=== PATIENT | female | born 1935 | race Caucasian/White ===

== ENCOUNTER 2017-11-12 02:43 | Inpatient (IN) | payer MEDICARE ==
[2017-11-12] MEDS ORDERED: NS 0.9% 1000 ML* 1,000 ML IV ONE (03:07)
[2017-11-12] MEDS ORDERED: Ondansetron INJ* 2 MG/ML VIAL IV ONE (03:07)
[2017-11-12] MEDS ORDERED: fentaNYL* 50 MCG/ML 2 ML VIAL (100 MCG VIAL) IV SLOW PU ONE (03:09)
[2017-11-12 04:00] LABS: ABS Basophils 0.1 10^3/ul (0-0.2); ABS Eosinophils 0.1 10^3/ul (0-0.6); ABS Lymphocytes 2.1 10^3/ul (1.0-4.8); ABS Monocytes 1.5 10^3/ul (0-0.8); ABS Nucleated RBC 0 10^3/ul; Eosinophil % 1.1 % (0-6); Hematocrit 36 % (35-47); Hemoglobin 11.7 g/dl (12.0-16.0); Lymphocyte % 16.6 % (25-47); Mean Corpuscular HGB Conc 33 g/dl (31-36); Mean Corpuscular Hemoglobin 28 pg (27-31); Mean Corpuscular Volume 87 fL (80-97); Mean Platelet Volume 7 um3 (7.4-10.4); Nucleated Red Blood Cells % 0; Platelet Count 266 10^3/ul (150-450); Red Blood Count 4.13 10^6/ul (4.0-5.4); Red Cell Distribution Width 13 % (10.5-15); White Blood Count 12.9 10^3/ul (3.5-10.8)
[2017-11-12 04:09] LABS: INR 0.9 (0.77-1.02)
[2017-11-12 04:14] LABS: EGFR Non-African American 40.9 (>60)
[2017-11-12] MEDS ORDERED: Iodixanol* (CONTRAST) 320 MG/ML 100 ML SDV IV ONE (04:41)
[2017-11-12] MEDS ORDERED: metroNIDAZOLE IV 500 MG/100ML* 500 MG/100 ML BAG IVPB ONE (06:46)
[2017-11-12] MEDS ORDERED: Levofloxacin 500 MG IVPREMIX(* 500 MG/100 ML BAG IVPB ONE (06:46)
--- NOTE | 2017-11-12 06:51 | ED ---
Paras George Abhishek, scribed for Marta Maya MD on 11/12/17 at 0313 . Abdominal Pain/Female - HPI Summary HPI Summary: This patient is a 82 year old F presenting to [facility] accompanied by daughter with a chief complaint of LLQ abd pain since 179911/11/17. Pertinent PMHx includes renal calculi, DM and diverticulitis. The patient rates the pain 5/10 in severity. Symptoms aggravated by nothing. Symptoms alleviated by nothing. Patient reports nausea. Patient denies V/D, fever, and urinary symptoms. Pts last colonoscopy was 10 years ago. - History of Current Complaint Chief Complaint: EDAbdPain Stated Complaint: FLANK PAIN Time Seen by Provider: 11/12/17 02:58 Hx Obtained From: Patient Onset/Duration: Sudden Onset, Lasting Hours - since 179911/11/17 Severity Initially: Moderate Severity Currently: Moderate Pain Intensity: 5 Pain Scale Used: 0-10 Numeric Location: Discrete At: LUQ Aggravating Factor(s): Nothing Alleviating Factor(s): Nothing Associated Signs and Symptoms: Positive: Nausea. Negative: Fever, Urinary Symptoms, Vomiting, Diarrhea Allergies/Adverse Reactions: Allergies Allergy/AdvReac Type Severity Reaction Status Date / Time MS Penicillins [Penicillins] Allergy Severe Hives Verified 11/12/17 02:53 MS Morphine [Morphine] Allergy Mild Itching Verified 11/12/17 02:53 PMH/Surg Hx/FS Hx/Imm Hx Endocrine/Hematology History: Reports: Hx Anticoagulant Therapy - 81mg Aspirin, Hx Diabetes - type 2 Denies: Hx Thyroid Disease Cardiovascular History: Reports: Hx Congestive Heart Failure, Hx Hypertension Respiratory History: Denies: Hx Asthma, Hx Chronic Obstructive Pulmonary Disease (COPD) GI History: Denies: Hx Ulcer Neurological History: Reports: Hx Dementia - Surgical History Surgery Procedure, Year, and Place: L breast cyst removed; hysterrhectomy; appendectomy Infectious Disease History: No Infectious Disease History: Denies: Hx Hepatitis, Hx Human Immunodeficiency Virus (HIV), Traveled Outside the [place] in Last 30 Days - Family History Known Family History: Positive: Diabetes, Other - Cancer Negative: Cardiac Disease - Social History Occupation: Retired Alcohol Use: None Substance Use Type: Reports: None Hx Tobacco Use: Yes Smoking Status (MU): Former Smoker Review of Systems Negative: Fever Eyes: Negative ENT: Negative Cardiovascular: Negative Respiratory: Negative Positive: Abdominal Pain - LLQ, Nausea. Negative: Vomiting, Diarrhea Positive: no symptoms reported Musculoskeletal: Negative Skin: Negative Neurological: Negative Psychological: Normal All Other Systems Reviewed And Are Negative: Yes Physical Exam - Summary Physical Exam Summary: VITAL SIGNS: Reviewed. GENERAL: ~Patient is a morbidly obese (FEMALE) who is lying comfortable in the stretcher. Patient is not in any acute respiratory distress. HEAD AND FACE: No signs of trauma. No ecchymosis, hematomas or skull depressions. No sinus tenderness. EYES: PERRLA, EOMI x 2, No injected conjunctiva, no nystagmus. EARS: Hearing grossly intact. Ear canals and tympanic membranes are within normal limits. MOUTH: Oropharynx within normal limits. NECK: Supple, trachea is midline, no adenopathy, no JVD, no carotid bruit, no c- spine tenderness, neck with full ROM. CHEST: Symmetric, no tenderness at palpation LUNGS: Clear to auscultation bilaterally. No wheezing or crackles. CVS: Regular rate and rhythm, S1 and S2 present, no murmurs or gallops appreciated. ABDOMEN: LLQ tenderness EXTREMITIES: FROM in all major joints, no edema, no cyanosis or clubbing. NEURO: Alert and oriented x 3. No acute neurological deficits. Speech is normal and follows commands. SKIN: Dry and warm Triage Information Reviewed: Yes Vital Signs On Initial Exam: Initial Vitals Temp Pulse Resp BP Pulse Ox 99.0 F 84 16 146/79 95 11/12/17 02:45 11/12/17 02:45 11/12/17 02:45 11/12/17 02:45 11/12/17 02:45 Vital Signs Reviewed: Yes Diagnostics - Vital Signs Vital Signs Temp Pulse Resp BP Pulse Ox 11/12/17 02:45 99.0 F 84 16 146/79 95 - Laboratory Result Diagrams: 11/12/17 03:35 11/12/17 03:35 Lab Statement: Any lab studies that have been ordered have been reviewed, and results considered in the medical decision making process. Abdominal Pain Fem Course/Dx - Course Course Of Treatment: The pt is a 82 F who is presenting to the [facility] with a chief complaint of LLQ abd pain. The pt has hx of renal calculi and diverticulitis. Pt reports nausea, however, the pt denies vomitting. The pt recieved a CT A/P results. We discussed pt care with Dr. Hubbard and she accepts pt care. The dx will be sigmoid diverticulitis. - Diagnoses Provider Diagnoses: Sigmoid diverticulitis - Provider Notifications Discussed Care Of Patient With: Queenie Hubbard Time Discussed With Above Provider: 06:46 Instructed by Provider To: Admit As Observation Discharge - Discharge Plan Condition: Stable Disposition: ADMITTED TO [facility] Referrals: Ramon Brody MD [Primary Care Provider] - The documentation as recorded by the Paras geronimo Abhishek accurately reflects the service I personally performed and the decisions made by Francesco dykes Abdul, MD.
--- NOTE | 2017-11-12 07:49 | RAD ---
CLINICAL HISTORY: Abdominal pain COMPARISON: December 09, 2014 TECHNIQUE: Multiple contiguous axial CT scans were obtained of the abdomen and pelvis after the administration of intravenous contrast. Coronal and sagittal multiplanar reformations are submitted for review. Oral contrast was administered. Delayed images were obtained through the abdomen and pelvis. FINDINGS: LUNG BASES: The lung bases are clear. LIVER: The liver is normal in shape, size, contour, and attenuation. BILE DUCTS: There is no intrahepatic or extrahepatic biliary dilatation. GALLBLADDER: The gallbladder is normal, without pericholecystic inflammatory change. PANCREAS: The pancreas is normal, without mass or ductal dilatation. SPLEEN: Normal in size and appearance. UPPER GI TRACT: Evaluation of the gastrointestinal tract is limited by incomplete gastric distention. The upper GI tract is unremarkable. SMALL BOWEL AND MESENTERY: The small bowel is normal in contour, course, and caliber. There is no obstruction or dilatation. COLON: There is diverticulosis of the descending and sigmoid colon. There is pericolonic inflammatory change of the descending and sigmoid junction. There is no loculated fluid collections just abscess. ADRENALS: There is mild nodularity of left adrenal gland which may reflect hyperplasia. This is similar to the previous examination. The stability from 2015 is consistent with a nonaggressive process.. KIDNEYS: There is mild renal cortical parenchymal thinning.. There is no hydronephrosis or nephrolithiasis. BLADDER: The bladder is smooth in contour. PELVIC ORGANS: The pelvic organs are not visualized. AORTA: There is calcific atherosclerotic disease of the abdominal aorta and its branches, without aneurysmal dilatation IVC: Unremarkable LYMPH NODES: There is no lymphadenopathy by size criteria. ABDOMINAL WALL: There is a small fat-containing umbilical hernia. BONES AND SOFT TISSUES: Degenerative changes are noted of the spine and hips OTHER: None IMPRESSION: DIVERTICULITIS, WITHOUT LOCULATED FLUID COLLECTION TO SUGGEST ABSCESS.
[2017-11-12] MEDS ORDERED: Dextrose 50% Syringe 50 ML* 25 GM/50 ML SYRINGE IV PUSH PRN (08:13)
--- NOTE | 2017-11-12 09:08 | RAD ---
HISTORY: Diverticulitis COMPARISONS: September 02, 2012 VIEWS: 2: frontal portable view of the chest at 8:45 AM FINDINGS: LINES AND TUBES: None. CARDIOMEDIASTINAL SILHOUETTE: The cardiomediastinal silhouette is normal for portable technique and phase of inspiration. PLEURA: The costophrenic angles are sharp. No pleural abnormalities are noted. LUNG PARENCHYMA: The lung volumes are low. The lungs are clear. ABDOMEN: The upper abdomen is clear. There is no subphrenic gas. BONES AND SOFT TISSUES: No bone or soft tissue abnormalities are noted. IMPRESSION: NO ACTIVE CARDIOPULMONARY DISEASE.
[2017-11-12] MEDS ORDERED: Ciprofloxacin 400MG IVPREMIX(* 400 MG/200 ML BAG IVPB SCH (10:00)
[2017-11-12] MEDS ORDERED: ceFAZolin 2 GM PREMIX (*) 2 GM/50 ML BAG IVPB SCH (10:30)
[2017-11-12] MEDS ORDERED: metroNIDAZOLE IV 500 MG/100ML* 500 MG/100 ML BAG IVPB SCH (11:00)
[2017-11-12] MEDS: Enoxaparin(*) 40 MG/0.4 ML SYR SUBCUT SCH (11:09)
[2017-11-12 11:32] LABS: Urine Appearance Clear; Urine Blood Negative (Negative); Urine Color Yellow; Urine Ketones Negative (Negative); Urine Protein Negative (Negative); Urine Specific Gravity 1.034 (1.010-1.030); Urine Urobilinogen Negative (Negative)
[2017-11-12] MEDS: Ondansetron INJ* 2 MG/ML VIAL IV PRN (12:47)
[2017-11-12] MEDS: NS 0.9% 1000 ML* 1,000 ML IV SCH (12:47)
[2017-11-12] MEDS: Insulin LISPRO* 1 UNITS UNIT SUBCUT SCH ×3 (12:47→20:53)
[2017-11-12] MEDS: HYDROmorphone INJ* 2 MG/ML CARPUJECT SYRINGE IV SLOW PU PRN ×2 (12:47→17:19)
[2017-11-12] MEDS: FLUoxetine CAP* 10 MG PO SCH (12:48)
[2017-11-12] MEDS: Aspirin EC Low Dose* 81 MG TAB.EC PO SCH (12:48)
[2017-11-12] MEDS ORDERED: PROCHLORPERAZINE INJ 5 MG/ML 2 ML VIAL IM PRN (14:58)
[2017-11-12] MEDS: Insulin NPH(*) 1 UNITS UNIT SUBCUT SCH (15:20)
--- NOTE | 2017-11-12 15:25 | HP ---
HISTORY AND PHYSICAL: ADDENDUM: The emergency department RN paged me to report a reaction to the levofloxacin that had just been hung on Ms. Landa. She developed an erythematous macular rash on the arm in which it was infusing, so the infusion was discontinued. Based on this reaction, I will also discontinue the ciprofloxacin and start cefazolin in combination with her metronidazole. She does have a history of hives to PENICILLINS; however, given the low cross reactivity, we will attempt a cephalosporin. If she has a reaction to this as well, we will plan to switch to carbapenem. [id number]/[facility] #: [id number] [facility] SYSTEM[facility]
--- NOTE | 2017-11-12 15:34 | HP ---
TWO ADDENDUMS NOW INCLUDED ON THIS REPORT CC: Dr. Brody * HISTORY AND PHYSICAL: DATE OF ADMISSION: 11/12/17 TIME OF ADMISSION: 8:00 a.m. PRIMARY CARE PROVIDER: Dr. Brody. CHIEF COMPLAINT: "I was sick." HISTORY OF PRESENT ILLNESS: This is an 82-year-old female with a history of type 2 diabetes and dementia presenting with two days of fatigue and abdominal pain that began last night. She is here with her stepdaughter who currently lives with her and helps provide the history. Ms. Landa looks to her to respond to most of my questions. Her stepdaughter, Chen, reports that Ms. Landa had been napping more frequently than usual over the past 2 days and then last night after they got home from a doctor's visit she had a half serving of chili and then went to bed early around 7:30, which is unusual for her. Then at 2 a.m., Ms. Landa woke up her stepdaughter saying that she did not feel well and complained of left lower quadrant abdominal pain. She also complained of nausea at that time, but had no vomiting. Her stepdaughter brought her to the emergency department at that time. Otherwise, she reports feeling well recently. Has had no fevers at home. PAST MEDICAL HISTORY: Macular degeneration, type 2 diabetes, hypertension, hypothyroidism, and dementia. PCP is Dr. Brody. HOME MEDICATIONS: This is per the emergency department medication reconciliation: 1. Glipizide 2.5 mg in the morning. 2. Glipizide 5 mg in the evening. 3. Fluoxetine 10 mg daily. 4. Donepezil 5 mg at bedtime. 5. Aspirin 81 mg daily. 6. Simvastatin 40 mg at bedtime. 7. Losartan 50 mg daily. 8. Lasix 20 mg daily. 9. Synthroid 25 mcg in the morning. 10. Humalog 70/30; 40 units in the morning and 30 units with dinner. ALLERGIES: MORPHINE - hives and PENICILLIN - hives. SOCIAL HISTORY: Her stepdaughter, Chen, recently moved in with her from [place], because her daughter Alaina needed more help caring for her. She does not smoke and drink and has never been a smoker. Her daughter Alaina is her next of kin, her phone number is [phone]. She lives on 1 level with the exception of 3 stairs to get into the house. REVIEW OF SYSTEMS: Positive as per HPI, as well as loose stools for 1 week. She denies any recent constipation, fevers, chills, cough, cold, weight gain or weight loss, shortness of breath or chest pain. CONTINUATION ADDENDUM: PHYSICAL EXAMINATION GENERAL: Alert, well-appearing female in no distress. She is oriented to person only. She thinks it is 1966 and that the president is Abad Stein. VITAL SIGNS: Temperature 99 degrees, heart rate 81, respiratory rate 16, pulse ox 97% on 2 L, blood pressure 114/53. HEENT: Pupils equal, round and reactive to light with no conjunctival injection. She has moist oral mucosa with no pharyngeal exudates or erythema. NECK: No JVP. No cervical adenopathy. LUNGS: Clear bilaterally. CHEST: Regular rate and rhythm. No murmurs. PMI is nondisplaced. ABDOMEN: Soft, nondistended, and tender to palpation in the left lower quadrant with voluntary guarding. Liver is nonpalpable. She has a large suprapubic pouch that is nontender and nonreducible. EXTREMITIES: No edema. No rashes. No ulcers. NEUROLOGIC: Strength is 5+ throughout. Sensation is intact. She has good attention, but poor short-term recall. ASSESSMENT AND PLAN: 1. We will continue her IV antibiotics with ciprofloxacin and metronidazole. She meets inpatient criteria as she is currently unable to tolerate p.o. medications. I will continue IV ciprofloxacin and metronidazole until she is able to take pills. I will continue gentle IV fluid resuscitation and pain control as needed. We will advance her diet as tolerated. 2. Type 2 diabetes. At home she takes 70/30, 40 units in the morning and 30 units with dinner while she is not taking p.o. I will have the NPH portion and start fingersticks with correction lispro. 3. Hypertension. I am holding her antihypertensive for now and can add back her Lasix and losartan as needed. 4. Dementia. Continue Aricept at bedtime. She is well cared for by her daughter- in-law. 5. Hypothyroidism. Continue home levothyroxine. 6. Disposition. Admit to observation until Ms. Landa is able to take p.o. medications. Check EKG for antiemetics. 7. DVT prophylaxis. Lovenox subcutaneous. LABORATORY DATA: White blood cell 12.9, hemoglobin 11.7, platelets 266,000. Sodium 137, potassium 4.1, chloride 103, bicarb 29. BUN 30; creatinine 1.25, her baseline is 1.1. Glucose 78, lipase 24, albumin 3.5, total protein 6.1, total bili 0.5. ALT 7, AST 12, alk phos 56. Preliminary CT abdomen and pelvis with contrast: Uncomplicated sigmoid diverticulitis, bilateral renal cortical thinning and possible left adrenal adenoma which can be followed up with MRI as needed. ASSESSMENT AND PLAN: This is an 82-year-old female with a history of type 2 diabetes, dementia and hypertension who presents with left lower quadrant abdominal pain for 1 day and is found to have sigmoid diverticulitis on a CT with contrast. Acute sigmoid diverticulitis. This is likely the cause of her left lower quadrant abdominal pain. She received a dose of Levaquin and metronidazole in the emergency department. ADDENDUM: The emergency department RN paged me to report a reaction to the levofloxacin that had just been hung on MsShahana Landa. She developed an erythematous macular rash on the arm in which it was infusing, so the infusion was discontinued. Based on this reaction, I will also discontinue the ciprofloxacin and start cefazolin in combination with her metronidazole. She does have a history of hives to PENICILLINS; however, given the low cross reactivity, we will attempt a cephalosporin. If she has a reaction to this as well, we will plan to switch to carbapenem. [id number]/[facility] #: [id number]/[facility] #: [id number]/[facility] #: [id number] [facility]
--- NOTE | 2017-11-12 15:43 | HP ---
HISTORY AND PHYSICAL: ADDENDUM: PHYSICAL EXAMINATION GENERAL: Alert, well-appearing female in no distress. She is oriented to person only. She thinks it is 1966 and that the president is Abad Stein. VITAL SIGNS: Temperature 99 degrees, heart rate 81, respiratory rate 16, pulse ox 97% on 2 L, blood pressure 114/53. HEENT: Pupils equal, round and reactive to light with no conjunctival injection. She has moist oral mucosa with no pharyngeal exudates or erythema. NECK: No JVP. No cervical adenopathy. LUNGS: Clear bilaterally. CHEST: Regular rate and rhythm. No murmurs. PMI is nondisplaced. ABDOMEN: Soft, nondistended, and tender to palpation in the left lower quadrant with voluntary guarding. Liver is nonpalpable. She has a large suprapubic pouch that is nontender and nonreducible. EXTREMITIES: No edema. No rashes. No ulcers. NEUROLOGIC: Strength is 5+ throughout. Sensation is intact. She has good attention, but poor short-term recall. ASSESSMENT AND PLAN: 1. We will continue her IV antibiotics with ciprofloxacin and metronidazole. She meets inpatient criteria as she is currently unable to tolerate p.o. medications. I will continue IV ciprofloxacin and metronidazole until she is able to take pills. I will continue gentle IV fluid resuscitation and pain control as needed. We will advance her diet as tolerated. 2. Type 2 diabetes. At home she takes 70/30, 40 units in the morning and 30 units with dinner while she is not taking p.o. I will have the NPH portion and start fingersticks with correction lispro. 3. Hypertension. I am holding her antihypertensive for now and can add back her Lasix and losartan as needed. 4. Dementia. Continue Aricept at bedtime. She is well cared for by her daughter- in-law. 5. Hypothyroidism. Continue home levothyroxine. 6. Disposition. Admit to observation until Ms. Landa is able to take p.o. medications. Check EKG for antiemetics. 7. DVT prophylaxis. Lovenox subcutaneous. [id number]/[facility] #: [id number] [facility]
[2017-11-12] MEDS ORDERED: PROCHLORPERAZINE INJ 5 MG/ML 2 ML VIAL IV PRN (17:27)
[2017-11-12] MEDS: Atorvastatin* 20 MG TAB PO SCH (20:53)
[2017-11-12] MEDS: Donepezil TAB* 5 MG PO SCH (20:53)
[2017-11-12] MEDS: NS IVPB SCH ×2 (20:54)
[2017-11-12] MEDS: CEFAZOLIN IVPB SCH ×2 (20:54)
[2017-11-12] MEDS: metroNIDAZOLE IV 500 MG/100ML* 500 MG/100 ML BAG IVPB SCH (23:07)
[2017-11-12] MEDS: Acetaminophen TAB* 325 MG PO PRN (23:53)
[2017-11-13] MEDS: NS IVPB SCH ×6 (05:03→20:22)
[2017-11-13] MEDS: CEFAZOLIN IVPB SCH ×6 (05:03→20:22)
[2017-11-13 06:22] LABS: EGFR Non-African American 34.8 (>60)
[2017-11-13 06:41] LABS: Hematocrit 33 % (35-47); Hemoglobin 10.5 g/dl (12.0-16.0); Mean Corpuscular HGB Conc 32 g/dl (31-36); Mean Corpuscular Hemoglobin 28 pg (27-31); Mean Corpuscular Volume 89 fL (80-97); Red Blood Count 3.73 10^6/ul (4.0-5.4); Red Cell Distribution Width 14 % (10.5-15); White Blood Count 13.9 10^3/ul (3.5-10.8)
[2017-11-13] MEDS: metroNIDAZOLE IV 500 MG/100ML* 500 MG/100 ML BAG IVPB SCH ×3 (06:41→22:27)
[2017-11-13 07:56] LABS: ABS Basophils 0 10^3/ul (0-0.2); ABS Eosinophils 0 10^3/ul (0-0.6); ABS Lymphocytes 1.6 10^3/ul (1.0-4.8); ABS Monocytes 1.1 10^3/ul (0-0.8); ABS Neutrophils 11.1 10^3/ul (1.5-7.7); ABS Nucleated RBC 0 10^3/ul; Eosinophil % 0.2 % (0-6); Lymphocyte % 11.8 % (25-47); Mean Platelet Volume 9 um3 (7.4-10.4); Nucleated Red Blood Cells % 0; Platelet Count 195 10^3/ul (150-450)
[2017-11-13] MEDS: FLUoxetine CAP* 10 MG PO SCH (09:00)
[2017-11-13] MEDS: Aspirin EC Low Dose* 81 MG TAB.EC PO SCH (09:00)
[2017-11-13] MEDS: Insulin LISPRO* 1 UNITS UNIT SUBCUT SCH ×4 (09:00→20:53)
[2017-11-13] MEDS: Levothyroxine TAB* 25 MCG TAB PO SCH (09:00)
[2017-11-13] MEDS: Insulin NPH(*) 1 UNITS UNIT SUBCUT SCH ×2 (09:01→15:19)
[2017-11-13] MEDS: Enoxaparin(*) 40 MG/0.4 ML SYR SUBCUT SCH (09:01)
[2017-11-13] MEDS: Enoxaparin(*) 30 MG/0.3 ML SYR SUBCUT SCH (15:19)
--- NOTE | 2017-11-13 15:20 | PN ---
Subjective Date of Service: 11/13/17 Interval History: Feels a little better today, her daughter and stepdaughter are at the bedside. She remembers that she came to the ED for abdominal pain, and believes she is getting better. SHe had nausea all day yesterday, so did not eat until this morning. She had some jello and broth for lunch and tolerated it well. SHe has been having diarrhea, but it has been mixed with urine so no sample has been obtained. Family History: Unchanged from Admission Social History: Unchanged from Admission Past Medical History: Unchanged from Admission Objective Active Medications: Acetaminophen (Tylenol Tab*) 650 mg PO Q4H PRN PRN Reason: FEVER/PAIN Last Admin: 11/12/17 23:53 Dose: 650 mg Aspirin (Aspirin Ec Low Dose*) 81 mg PO DAILY [facility] Last Admin: 11/13/17 09:00 Dose: 81 mg Atorvastatin Calcium (Lipitor*) 20 mg PO BEDTIME [facility] Last Admin: 11/12/17 20:53 Dose: 20 mg Dextrose (D50w Syringe 50 Ml*) 12.5 gm IV PUSH .FOR FS < 60 - SS PRN PRN Reason: FS < 60 Donepezil HCl (Aricept Tab*) 5 mg PO BEDTIME [facility] Last Admin: 11/12/17 20:53 Dose: 5 mg Enoxaparin Sodium (Lovenox(*)) 30 mg SUBCUT Q24H CHARLY Fluoxetine HCl (Prozac Cap*) 10 mg PO DAILY [facility] Last Admin: 11/13/17 09:00 Dose: 10 mg Hydromorphone HCl (Dilaudid Inj*) 0.5 mg IV SLOW PU Q4H PRN PRN Reason: PAIN Last Admin: 11/12/17 17:19 Dose: 0.5 mg Sodium Chloride (Ns 0.9% 1000 Ml*) 1,000 mls @ 100 mls/hr IV PER RATE [facility] Last Admin: 11/12/17 12:47 Dose: 100 mls/hr Metronidazole/Sodium Chloride (Flagyl 500 Mg Ivpb*) 500 mg in 100 mls @ 100 mls /hr IVPB Q8HR [facility] Last Admin: 11/13/17 13:56 Dose: 100 mls/hr Cefazolin Sodium 2 gm/ Sodium (Chloride) 100 mls @ 200 mls/hr IVPB Q8HR@0500, 1300,2100 [facility] Last Admin: 11/13/17 12:57 Dose: 200 mls/hr Sodium Chloride (Ns 0.9% 500 Ml*) 500 mls @ 999 mls/hr IV ONCE ONE Stop: 11/13/17 16:30 Last Admin: 11/13/17 14:50 Dose: 999 mls/hr Insulin Human Lispro (Humalog*) 0 units SUBCUT ACHS [facility] PRN Reason: Protocol Last Admin: 11/13/17 12:26 Dose: 3 unit Insulin Human NPH (Insulin Nph(*)) 10 units SUBCUT 0700,1500 [facility] Last Admin: 11/13/17 09:01 Dose: 10 unit Levothyroxine Sodium (Synthroid Tab*) 25 mcg PO 0800 [facility] Last Admin: 11/13/17 09:00 Dose: 25 mcg Ondansetron HCl (Zofran Inj*) 4 mg IV Q4H PRN PRN Reason: NAUSEA Last Admin: 11/12/17 12:47 Dose: 4 mg Prochlorperazine Edisylate (Compazine Inj*) 5 mg IV Q6H PRN PRN Reason: NAUSEA Vital Signs - 8 hr 11/13/17 11/13/17 11/13/17 07:55 11:25 14:12 Temperature 99.6 F 98.2 F Pulse Rate 84 74 76 Respiratory 18 Rate Blood Pressure 106/74 110/51 82/31 (mmHg) O2 Sat by Pulse 97 100 99 Oximetry 11/13/17 14:29 Temperature Pulse Rate Respiratory Rate Blood Pressure 90/30 (mmHg) O2 Sat by Pulse Oximetry Oxygen Devices in Use Now: Nasal Cannula Appearance: alert, oriented to person only, no distress Eyes: No Scleral Icterus Ears/Nose/Mouth/Throat: NL Teeth, Lips, Gums Neck: NL Appearance and Movements; NL JVP Respiratory: Symmetrical Chest Expansion and Respiratory Effort, Clear to Auscultation Cardiovascular: NL Sounds; No Murmurs; No JVD, RRR Abdominal: NL Sounds; No Tenderness; No Distention, - - LLQ tender to deep palpation, no guarding or rebound. Lymphatic: No Cervical Adenopathy Extremities: No Edema Skin: No Rash or Ulcers Result Diagrams: 11/13/17 05:29 11/13/17 07:03 Assess/Plan/Problems-Billing Assessment: 82 yo female with history of diabetes and dementia who presented to the ED with LLQ abdominal pain and anorexia and was found to have acute diverticulitis on CT abd/pelvis - Patient Problems (1) Acute diverticulitis Current Visit: Yes Status: Acute Code(s): K57.92 - DVTRCLI OF INTEST, PART UNSP, W/O PERF OR ABSCESS W/O BLEED SNOMED Code(s): 841375061 Comment: unable to be managed as an outpatient due to inability to take PO advance diet today continue cefazolin/metronidazole increase IVF resuscitation for hypotension (2) Dementia Current Visit: Yes Status: Acute Code(s): F03.90 - UNSPECIFIED DEMENTIA WITHOUT BEHAVIORAL DISTURBANCE SNOMED Code(s): 17527462 Comment: at baseline per her family good ambulation, no concerns from them about safety at home; her stepdaughter Chen is living with her (3) Diabetes Current Visit: Yes Status: Acute Code(s): E11.9 - TYPE 2 DIABETES MELLITUS WITHOUT COMPLICATIONS SNOMED Code(s): 73154896 Comment: BG with adequate control on NPH 10U BID (will not add back 70/30 until she is taking more PO at mealtime) Status and Disposition: inpatient
[2017-11-13] MEDS ORDERED: NS 0.9% 500 ML* 500 ML IV ONE (16:00)
[2017-11-13] MEDS ORDERED: NS 0.9% 1000 ML* 1,000 ML IV ONE ×2 (16:00→17:15)
[2017-11-13] MEDS: NS 0.9% 1000 ML* 1,000 ML IV SCH ×2 (17:04→23:45)
[2017-11-13] MEDS: Atorvastatin* 20 MG TAB PO SCH (20:32)
[2017-11-13] MEDS: Donepezil TAB* 5 MG PO SCH (20:32)
[2017-11-14] MEDS: CEFAZOLIN IVPB SCH ×4 (05:41→12:56)
[2017-11-14] MEDS: NS IVPB SCH ×4 (05:41→12:56)
[2017-11-14] MEDS: metroNIDAZOLE IV 500 MG/100ML* 500 MG/100 ML BAG IVPB SCH ×3 (06:20→22:32)
[2017-11-14 06:48] LABS: ABS Basophils 0 10^3/ul (0-0.2); ABS Eosinophils 0.2 10^3/ul (0-0.6); ABS Monocytes 1.2 10^3/ul (0-0.8); ABS Neutrophils 8.2 10^3/ul (1.5-7.7); ABS Nucleated RBC 0 10^3/ul; Eosinophil % 1.6 % (0-6); Hematocrit 33 % (35-47); Hemoglobin 10.4 g/dl (12.0-16.0); Lymphocyte % 17.2 % (25-47); Mean Corpuscular HGB Conc 32 g/dl (31-36); Mean Corpuscular Hemoglobin 29 pg (27-31); Mean Corpuscular Volume 89 fL (80-97); Mean Platelet Volume 8 um3 (7.4-10.4); Nucleated Red Blood Cells % 0; Platelet Count 237 10^3/ul (150-450); Red Blood Count 3.66 10^6/ul (4.0-5.4); Red Cell Distribution Width 14 % (10.5-15); White Blood Count 11.6 10^3/ul (3.5-10.8)
[2017-11-14 07:14] LABS: EGFR Non-African American 42.5 (>60)
[2017-11-14] MEDS: Insulin LISPRO* 1 UNITS UNIT SUBCUT SCH ×4 (08:02→21:37)
[2017-11-14] MEDS: Levothyroxine TAB* 25 MCG TAB PO SCH (08:47)
[2017-11-14] MEDS: FLUoxetine CAP* 10 MG PO SCH (08:48)
[2017-11-14] MEDS: Aspirin EC Low Dose* 81 MG TAB.EC PO SCH (08:48)
[2017-11-14] MEDS: Insulin NPH(*) 1 UNITS UNIT SUBCUT SCH ×2 (08:48→15:27)
[2017-11-14] MEDS: Enoxaparin(*) 30 MG/0.3 ML SYR SUBCUT SCH (15:27)
--- NOTE | 2017-11-14 15:58 | PN ---
Subjective Date of Service: 11/14/17 Interval History: Patient seen and examined at bedside. Denies fever, chills, shortness of breath , chest discomfort. Pt states that her abdominal pain has improved, she reports intermittent nausea and vomiting. She has moved her bowels today. Family History: Unchanged from Admission Social History: Unchanged from Admission Past Medical History: Unchanged from Admission Objective Active Medications: Acetaminophen (Tylenol Tab*) 650 mg PO Q4H PRN Reason: FEVER/PAIN Aspirin (Aspirin Ec Low Dose*) 81 mg PO DAILY [facility] Atorvastatin Calcium (Lipitor*) 20 mg PO BEDTIME [facility] Dextrose (D50w Syringe 50 Ml*) 12.5 gm IV PUSH .FOR FS < 60 - SS PRN Reason: FS < 60 Donepezil HCl (Aricept Tab*) 5 mg PO BEDTIME [facility] Enoxaparin Sodium (Lovenox(*)) 30 mg SUBCUT Q24H [facility]LY Fluoxetine HCl (Prozac Cap*) 10 mg PO DAILY [facility] Hydromorphone HCl (Dilaudid Inj*) 0.5 mg IV SLOW PU Q4H PRN Reason: PAIN Sodium Chloride (Ns 0.9% 1000 Ml*) 1,000 mls @ 100 mls/hr IV PER RATE [facility] Metronidazole/Sodium Chloride (Flagyl 500 Mg Ivpb*) 500 mg in 100 mls @ 100 mls /hr IVPB Q8HR [facility] Cefazolin Sodium 2 gm/ Sodium (Chloride) 100 mls @ 200 mls/hr IVPB Q8HR@0500, 1300,2100 [facility] Insulin Human Lispro (Humalog*) 0 units SUBCUT ACHS CHARLY Insulin Human NPH (Insulin Nph(*)) 10 units SUBCUT 0700,1500 [facility] Levothyroxine Sodium (Synthroid Tab*) 25 mcg PO 0600 [facility] Ondansetron HCl (Zofran Inj*) 4 mg IV Q4H PRN Reason: NAUSEA Prochlorperazine Edisylate (Compazine Inj*) 5 mg IV Q6H PRN Reason: NAUSEA Vital Signs - 8 hr 11/14/17 11/14/17 11/14/17 08:00 09:00 11:32 Temperature 98.1 F Pulse Rate 77 75 Respiratory 18 16 20 Rate Blood Pressure 115/43 92/44 (mmHg) O2 Sat by Pulse 98 100 Oximetry Oxygen Devices in Use Now: Nasal Cannula - 1L Appearance: NAD, laying in bed Respiratory: Symmetrical Chest Expansion and Respiratory Effort, Clear to Auscultation Cardiovascular: NL Sounds; No Murmurs; No JVD, RRR Abdominal: NL Sounds; No Tenderness; No Distention Extremities: - - Mild bilateral LE edema Skin: No Rash or Ulcers Neurological: NL Muscle Strength and Tone, - - Alert and Oriented to person and place, states year is 1986 Lines/Tubes/Other Access: Clean, Dry and Intact Peripheral IV - site benign Nutrition: Taking PO's - full liquids Result Diagrams: 11/14/17 05:45 11/14/17 05:45 Microbiology and Other Data: Microbiology 11/14/17 09:57 Stool Gross Appearance - Final Stool C. difficile DNA Amplification - Final 027 Presumptive NEGATIVE Toxigenic C.diff NEGATIVE Assess/Plan/Problems-Billing Assessment: Ms. Landa is an 82 yo female with PMH significant for diabetes and dementia who presented to the ED with LLQ abdominal pain and anorexia and was found to have acute diverticulitis on CT abd/pelvis - Patient Problems (1) Acute diverticulitis Code(s): K57.92 - DVTRCLI OF INTEST, PART UNSP, W/O PERF OR ABSCESS W/O BLEED SNOMED Code(s): 735613977 Comment: - Unable to be managed as an outpatient due to inability to take PO - Continue full liquid diet - Change cefazolin to cefepime and continue metronidazole - Continue IVF resuscitation for hypotension (2) Hypothyroidism Code(s): E03.9 - HYPOTHYROIDISM, UNSPECIFIED SNOMED Code(s): 19660397 Comment: - Continue levothyroxine (3) Diabetes Current Visit: Yes Status: Acute Code(s): E11.9 - TYPE 2 DIABETES MELLITUS WITHOUT COMPLICATIONS SNOMED Code(s): 13811299 Comment: - Glucose 90-280's - Continue NPH 10U BID (will not add back 70/30 until she is taking more PO at mealtime) and Lispro SS (4) Dementia Code(s): F03.90 - UNSPECIFIED DEMENTIA WITHOUT BEHAVIORAL DISTURBANCE SNOMED Code(s): 40030445 Comment: - Appears to be at baseline - Good ambulation, no concerns from them about safety at home; her stepdaughter Chen is living with her (5) DVT prophylaxis Code(s): AMN8887 - SNOMED Code(s): 155517372 Comment: - Lovenox (6) Full code status Code(s): Z78.9 - OTHER SPECIFIED HEALTH STATUS SNOMED Code(s): 855435460 Status and Disposition: Inpatient. Discharge to home when medically stable, suspect 2-3 days.
[2017-11-14] MEDS ORDERED: Cefepime(*) 2 GM in NS 0.9% 50 ML* 50 ML IVPB SCH (21:00)
[2017-11-14] MEDS: Cefepime 2 GM in Dextrose(*) 2 GM/50 ML BAG IV SCH (21:16)
[2017-11-14] MEDS: Donepezil TAB* 5 MG PO SCH (21:20)
[2017-11-14] MEDS: Acetaminophen TAB* 325 MG PO PRN (21:20)
[2017-11-14] MEDS: Atorvastatin* 20 MG TAB PO SCH (21:20)
[2017-11-15] MEDS: NS 0.9% 1000 ML* 1,000 ML IV SCH ×2 (02:44→12:01)
[2017-11-15] MEDS: metroNIDAZOLE IV 500 MG/100ML* 500 MG/100 ML BAG IVPB SCH ×3 (05:13→21:39)
[2017-11-15] MEDS: Levothyroxine TAB* 25 MCG TAB PO SCH (05:14)
[2017-11-15 06:18] LABS: ABS Basophils 0 10^3/ul (0-0.2); ABS Eosinophils 0.4 10^3/ul (0-0.6); ABS Lymphocytes 2.1 10^3/ul (1.0-4.8); ABS Monocytes 1.3 10^3/ul (0-0.8); ABS Neutrophils 8.1 10^3/ul (1.5-7.7); ABS Nucleated RBC 0 10^3/ul; Hematocrit 33 % (35-47); Hemoglobin 10.6 g/dl (12.0-16.0); Lymphocyte % 17.9 % (25-47); Mean Corpuscular HGB Conc 32 g/dl (31-36); Mean Corpuscular Hemoglobin 28 pg (27-31); Mean Corpuscular Volume 88 fL (80-97); Mean Platelet Volume 8 um3 (7.4-10.4); Nucleated Red Blood Cells % 0; Platelet Count 238 10^3/ul (150-450); Red Blood Count 3.77 10^6/ul (4.0-5.4); Red Cell Distribution Width 13 % (10.5-15)
[2017-11-15] MEDS: Aspirin EC Low Dose* 81 MG TAB.EC PO SCH (08:33)
[2017-11-15] MEDS: FLUoxetine CAP* 10 MG PO SCH (08:33)
[2017-11-15] MEDS: Insulin LISPRO* 1 UNITS UNIT SUBCUT SCH ×4 (08:33→20:47)
[2017-11-15] MEDS: Insulin NPH(*) 1 UNITS UNIT SUBCUT SCH ×2 (08:37→14:06)
[2017-11-15] MEDS: Acetaminophen TAB* 325 MG PO PRN (12:23)
[2017-11-15] MEDS: Enoxaparin(*) 30 MG/0.3 ML SYR SUBCUT SCH (14:06)
--- NOTE | 2017-11-15 15:24 | PN ---
Subjective Date of Service: 11/15/17 Interval History: Patient reports she feels much better today with less abdominal pain. Tolerating liquid diet. Denies fever or chills. No N/V/D. Reports normal BM this am. Family History: Unchanged from Admission Social History: Unchanged from Admission Past Medical History: Unchanged from Admission Objective Active Medications: Acetaminophen (Tylenol Tab*) 650 mg PO Q4H PRN PRN Reason: FEVER/PAIN Last Admin: 11/15/17 12:23 Dose: 650 mg Aspirin (Aspirin Ec Low Dose*) 81 mg PO DAILY [facility] Last Admin: 11/15/17 08:33 Dose: 81 mg Atorvastatin Calcium (Lipitor*) 20 mg PO BEDTIME [facility] Last Admin: 11/14/17 21:20 Dose: 20 mg Dextrose (D50w Syringe 50 Ml*) 12.5 gm IV PUSH .FOR FS < 60 - SS PRN PRN Reason: FS < 60 Donepezil HCl (Aricept Tab*) 5 mg PO BEDTIME [facility] Last Admin: 11/14/17 21:20 Dose: 5 mg Enoxaparin Sodium (Lovenox(*)) 30 mg SUBCUT Q24H [facility] Last Admin: 11/15/17 14:06 Dose: 30 mg Fluoxetine HCl (Prozac Cap*) 10 mg PO DAILY [facility] Last Admin: 11/15/17 08:33 Dose: 10 mg Hydromorphone HCl (Dilaudid Inj*) 0.5 mg IV SLOW PU Q4H PRN PRN Reason: PAIN Last Admin: 11/12/17 17:19 Dose: 0.5 mg Metronidazole/Sodium Chloride (Flagyl 500 Mg Ivpb*) 500 mg in 100 mls @ 100 mls /hr IVPB Q8HR [facility] Last Admin: 11/15/17 13:03 Dose: 100 mls/hr Cefepime HCl (Maxipime 2 Gm In Dextrose Duplex (*)) 2 gm in 50 mls @ 100 mls/ hr IV Q24H [facility] Last Admin: 11/14/17 21:16 Dose: 100 mls/hr Insulin Human Lispro (Humalog*) 0 units SUBCUT ACHS [facility] PRN Reason: Protocol Last Admin: 11/15/17 11:59 Dose: 6 unit Insulin Human NPH (Insulin Nph(*)) 10 units SUBCUT 0700,1500 [facility] Last Admin: 11/15/17 14:06 Dose: 10 unit Levothyroxine Sodium (Synthroid Tab*) 25 mcg PO 0600 [facility] Last Admin: 11/15/17 05:14 Dose: 25 mcg Ondansetron HCl (Zofran Inj*) 4 mg IV Q4H PRN PRN Reason: NAUSEA Last Admin: 11/12/17 12:47 Dose: 4 mg Prochlorperazine Edisylate (Compazine Inj*) 5 mg IV Q6H PRN PRN Reason: NAUSEA Vital Signs - 8 hr 11/15/17 11/15/17 11/15/17 07:46 08:15 11:12 Temperature 98.3 F 98.0 F Pulse Rate 75 78 Respiratory 18 18 16 Rate Blood Pressure 123/43 136/58 (mmHg) O2 Sat by Pulse 94 97 Oximetry Oxygen Devices in Use Now: None, Nasal Cannula Appearance: elderly female laying in bed alert in NAD Eyes: No Scleral Icterus, PERRLA Ears/Nose/Mouth/Throat: NL Teeth, Lips, Gums Neck: NL Appearance and Movements; NL JVP Respiratory: Symmetrical Chest Expansion and Respiratory Effort, Clear to Auscultation Cardiovascular: NL Sounds; No Murmurs; No JVD, RRR, No Edema Abdominal: NL Sounds; No Tenderness; No Distention, - - obese, no guarding Extremities: No Edema, No Clubbing, Cyanosis Skin: No Rash or Ulcers Neurological: Alert and Oriented x 3, NL Sensation, NL Muscle Strength and Tone Lines/Tubes/Other Access: Clean, Dry and Intact Peripheral IV Nutrition: Taking PO's Result Diagrams: 11/15/17 05:10 11/14/17 05:45 Microbiology and Other Data: Microbiology 11/14/17 09:57 Stool Gross Appearance - Final Stool C. difficile DNA Amplification - Final 027 Presumptive NEGATIVE Toxigenic C.diff NEGATIVE Assess/Plan/Problems-Billing Assessment: Ms. Landa is an 82 yo female with PMH significant for diabetes and dementia who presented to the ED with LLQ abdominal pain and anorexia and was found to have acute diverticulitis on CT abd/pelvis - Patient Problems (1) Acute diverticulitis Comment: - Doing well; Advanced diet - Switch to PO antibiotics - DC IVF -Ambulate pt; possible DC home tomorrow if tolerating PO (2) Diabetes Comment: - Glucose 90-280's - Continue NPH 10U BID (Hold 70/30 until she is taking more PO at mealtime) and Lispro SS (3) Dementia Comment: - Appears to be at baseline (4) Hypothyroidism Comment: - Continue levothyroxine (5) DVT prophylaxis Comment: - Lovenox (6) Full code status Status and Disposition: Inpatient. Discharge to home - possibly tomorrow if tolerating PO
[2017-11-15] MEDS: Donepezil TAB* 5 MG PO SCH (20:47)
[2017-11-15] MEDS: Cefepime 2 GM in Dextrose(*) 2 GM/50 ML BAG IV SCH (20:47)
[2017-11-15] MEDS: Atorvastatin* 20 MG TAB PO SCH (20:47)
[2017-11-15] MEDS: Ondansetron INJ* 2 MG/ML VIAL IV PRN (22:16)
[2017-11-16] MEDS: Acetaminophen TAB* 325 MG PO PRN (03:41)
[2017-11-16 05:23] LABS: ABS Basophils 0.1 10^3/ul (0-0.2); ABS Eosinophils 0.2 10^3/ul (0-0.6); ABS Lymphocytes 1.4 10^3/ul (1.0-4.8); ABS Monocytes 0.9 10^3/ul (0-0.8); ABS Neutrophils 5.5 10^3/ul (1.5-7.7); ABS Nucleated RBC 0 10^3/ul; Hematocrit 30 % (35-47); Hemoglobin 9.8 g/dl (12.0-16.0); Lymphocyte % 17.5 % (25-47); Mean Corpuscular HGB Conc 33 g/dl (31-36); Mean Corpuscular Hemoglobin 28 pg (27-31); Mean Corpuscular Volume 87 fL (80-97); Mean Platelet Volume 7 um3 (7.4-10.4); Nucleated Red Blood Cells % 0; Platelet Count 245 10^3/ul (150-450); Red Blood Count 3.47 10^6/ul (4.0-5.4); Red Cell Distribution Width 14 % (10.5-15); White Blood Count 8.1 10^3/ul (3.5-10.8)
[2017-11-16] MEDS: metroNIDAZOLE IV 500 MG/100ML* 500 MG/100 ML BAG IVPB SCH (05:26)
[2017-11-16] MEDS: Levothyroxine TAB* 25 MCG TAB PO SCH (05:26)
[2017-11-16 05:52] LABS: EGFR Non-African American 60.6 (>60)
[2017-11-16 07:44] VITALS: BP 127/50
[2017-11-16] MEDS: Insulin LISPRO* 1 UNITS UNIT SUBCUT SCH (07:53)
[2017-11-16] MEDS: Aspirin EC Low Dose* 81 MG TAB.EC PO SCH (08:28)
[2017-11-16] MEDS: Insulin NPH(*) 1 UNITS UNIT SUBCUT SCH (08:28)
[2017-11-16] MEDS: FLUoxetine CAP* 10 MG PO SCH (08:29)
--- NOTE | 2017-11-17 03:13 | DS ---
DISCHARGE SUMMARY: DATE OF ADMISSION: 11/12/17 DATE OF DISCHARGE: 11/16/17 ADMITTING PROVIDER: Marilu Valenzuela DO. ATTENDING PHYSICIAN: Juan Mcleod MD. PRIMARY CARE PHYSICIAN: Dr. Ramon Brody. CHIEF COMPLAINT: Abdominal pain, fatigue. PRINCIPAL DIAGNOSES: Sigmoid diverticulitis, uncomplicated; sepsis. HISTORY OF PRESENT ILLNESS/HOSPITAL COURSE: Daphnie Landa is an 82-year-old female with past medical history of insulin-dependent diabetes mellitus type 2, dementia, hypertension, hypothyroidism, who presented with 2 days of fatigue and abdominal pain in the left lower quadrant. She had a CT of the abdomen and pelvis with contrast, which showed acute sigmoid diverticulitis without any loculated fluid collection. She was admitted for diverticulitis and initially started on Flagyl and Levaquin; however, she developed an erythematous macular rash on the arms during the infusion of Levaquin. This was then changed to cefazolin and again on hospital day #3, to cefepime. She initially had a leukocytosis of 12.9 on the day of discharge, resolved to 8.1. She had a temperature maximum of 101.0; late in the day, hospital day #1, she defervesced. She also had tachycardia to 104 and blood pressure low of 82/31 recorded. She is meeting SIRS criteria. She also had tachypnea highest of 22, meeting qSOFA criteria. She intermittently was not tolerating p.o. intake, the diet was slowly advanced. Her insulin dosing with Humalog 75/25 was reduced on admission, and she will be discharged on a reduced dose from her 40/30 down to 20/20 daily. She will have followup with Dr. Brody as an outpatient with recorded blood sugars. She is being discharged on Bactrim and Flagyl, given her PENICILLIN allergy, for an additional 4 days for a total 9-day course. She was walking in the halls independently and she lives with her step- daughter, Chen, who helps take care of her daily needs. Family reports she is independent at baseline. She was set up with [facility] referral through case management department. DISCHARGE MEDICATIONS: Include: 1. Humalog. 2. 75-25 KwikPen 20 units at 8 a.m. and 20 units at 5 p.m. or otherwise before breakfast and dinner respectively. Please note that this was a reduction from 40 units a.m. and 30 units p.m. or with dinner previously. 3. Aspirin 81 mg daily. 4. Aricept 5 mg p.o. q.h.s. 5. Fluoxetine (Prozac) 10 mg p.o. daily. 6. Levothyroxine 25 mcg p.o. q.a.m. 7. Simvastatin 40 mg p.o. q.h.s. 8. Lasix 20 mg p.o. daily. 9. Glipizide 5 mg p.o. q.p.m. and 2.5 mg p.o. q.a.m. 10. Losartan 15 mg p.o. daily. 11. Flagyl 500 mg p.o. q.i.d. for 16 more tabs. 12. Bactrim 800/160 double-strength p.o. b.i.d. for 8 tabs. DISCHARGE DIET: Carbohydrate consistent, unchanged. ACTIVITY LEVEL: No restrictions. FOLLOWUP INSTRUCTIONS: Please follow up with Dr. Brody within 3 to 5 days of discharge. [facility] was referred to. Her sugars should be checked as an outpatient as her KwikPen dosing was reduced in the setting of poor p.o. intake in the setting of her diverticulitis. TIME SPENT: On discharge, 35 minutes. [id number]/[facility] #: [id number] CHRISTINA
== END 2017-11-16 12:00 | disposition home health service (06) | DRG 872 ==
LOC: ED 02:43 → MED 08:19 → OBSVTOIN 11-13 15:00
PROVIDERS: ADMIT Internal Medicine; ATTEND Internal Medicine
DX: A41.9 Sepsis, unspecified organism (principal); K57.32 Diverticulitis of large intestine without perforation or abscess without bleeding; E11.9 Type 2 diabetes mellitus without complications; F03.90 Unspecified dementia, unspecified severity, without behavioral disturbance, psychotic disturbance, mood disturbance, and anxiety; I10 Essential (primary) hypertension; E03.9 Hypothyroidism, unspecified; L27.1 Localized skin eruption due to drugs and medicaments taken internally; T37.8X5A Adverse effect of other specified systemic anti-infectives and antiparasitics, initial encounter; Y92.230 Patient room in hospital as the place of occurrence of the external cause; H35.30 Unspecified macular degeneration; Z79.84 Long term (current) use of oral hypoglycemic drugs; Z79.82 Long term (current) use of aspirin; Z79.4 Long term (current) use of insulin; Z79.899 Other long term (current) drug therapy; Z88.5 Allergy status to narcotic agent; Z88.0 Allergy status to penicillin
CPT/HCPCS: 36415; 71045; 74177; 80048; 80053; 81003; 82150; 83690; 85025; 85610; 85730; 86140; 87493; 93005; 99284; A9270-GY; G0378; J0690; J0692; J0780; J1170; J1650; J1956; J2405; J3010; J3490

== ENCOUNTER 2022-06-20 20:07 | Observation (INO) ==
[2022-06-20 21:43] LABS: ABS Basophils 0.1 10^3/ul (0-0.2); ABS Lymphocytes 1.7 10^3/ul (1.0-4.8); ABS Monocytes 0.9 10^3/ul (0-0.8); ABS Neutrophils 2.8 10^3/ul (1.5-7.7); Eosinophil % 0.1 %; Hematocrit 34 % (35-47); Hemoglobin 11.1 g/dL (12.0-16.0); Lymphocyte % 31.5 %; Mean Corpuscular HGB Conc 32 g/dL (31-36); Mean Corpuscular Hemoglobin 29 pg (27-31); Mean Corpuscular Volume 88 fL (80-97); Mean Platelet Volume 7.9 fL (7.4-10.4); Nucleated Red Blood Cells % 0.1; Platelet Count 204 10^3/uL (150-450); Red Blood Count 3.89 10^6 /uL (3.70-4.87); Red Cell Distribution Width 13 % (10-15); White Blood Count 5.5 10^3/uL (3.5-10.8)
[2022-06-20] MEDS ORDERED: NS 0.9% 1000 ml BAG 1,000 ML IV ONE (22:18)
[2022-06-20 22:26] LABS: Albumin 1.8 g/dL (3.2-5.2); Albumin/Globulin Ratio 1.4 (1-3); Globulin 1.3 g/dL (2-4); Magnesium 1.2 mg/dL (1.9-2.7); Total Bilirubin 0.2 mg/dL (0.2-1.0); Total Protein 3.1 g/dL (6.4-8.9); eGFR CKD-EPI 45.8 (>60)
[2022-06-20 22:37] LABS: Potassium 2.8 mmol/L (3.5-5.0)
[2022-06-20 22:40] LABS: TSH Ultra Thyroid Stim Horm 0.12 mcIU/mL (0.34-5.60)
[2022-06-20 23:19] LABS: High Sensitivity Troponin 1 Hr 10 pg/mL (<15)
[2022-06-21 00:57] LABS: Urine Appearance Clear; Urine Bilirubin Negative (Negative); Urine Blood Negative (Negative); Urine Color Yellow; Urine Glucose Negative (Negative); Urine Ketones Negative (Negative); Urine Nitrite Negative (Negative); Urine Protein Negative (Negative); Urine Specific Gravity 1.009 (1.002-1.030); Urine Urobilinogen Negative (Negative)
[2022-06-21 01:48] LABS: Albumin 2.9 g/dL (3.2-5.2); Albumin/Globulin Ratio 1.5 (1-3); Calcium 7.8 mg/dL (8.6-10.3); Potassium 3.4 mmol/L (3.5-5.0); Total Bilirubin 0.2 mg/dL (0.2-1.0); Total Protein 4.9 g/dL (6.4-8.9); eGFR CKD-EPI 27.9 (>60)
[2022-06-21 04:22] LABS: C Reactive Protein 14.82 mg/L (<8.01)
[2022-06-21 04:41] LABS: Free T4 1.05 ng/dL (0.61-1.12)
[2022-06-21 04:53] LABS: Vitamin D Total 25(OH) 7.8 ng/mL (20-50)
[2022-06-21] MEDS ORDERED: Cyanocobalamin INJ 1,000 MCG/ML VIAL 1 ML VIAL IM ONE (05:05)
[2022-06-21] MEDS ORDERED: Magnesium Sulf 4 GM/100 ML IV 4,000 MG/100 ML BAG IVPB ONE (05:05)
[2022-06-21] MEDS ORDERED: NS 0.9% 1000 ml BAG 1,000 ML IV SCH (05:15)
[2022-06-21] MEDS ORDERED: Dextrose 50% Syringe 50 ml 25 GM/50 ML SYRINGE IV PUSH PRN (05:25)
[2022-06-21 06:20] LABS: ABS Lymphocytes 1.6 10^3/ul (1.0-4.8); ABS Monocytes 0.6 10^3/ul (0-0.8); ABS Neutrophils 1.7 10^3/ul (1.5-7.7); Eosinophil % 0.5 %; Hematocrit 35 % (35-47); Hemoglobin 11.4 g/dL (12.0-16.0); Lymphocyte % 41.4 %; Mean Corpuscular HGB Conc 32 g/dL (31-36); Mean Corpuscular Hemoglobin 28 pg (27-31); Mean Corpuscular Volume 87 fL (80-97); Mean Platelet Volume 7.7 fL (7.4-10.4); Nucleated Red Blood Cells % 0.1; Platelet Count 182 10^3/uL (150-450); Red Blood Count 4.05 10^6 /uL (3.70-4.87); Red Cell Distribution Width 13 % (10-15); White Blood Count 3.9 10^3/uL (3.5-10.8)
[2022-06-21 06:54] LABS: Albumin 2.8 g/dL (3.2-5.2); Albumin/Globulin Ratio 1.4 (1-3); Calcium 7.9 mg/dL (8.6-10.3); Magnesium 1.8 mg/dL (1.9-2.7); Total Bilirubin 0.3 mg/dL (0.2-1.0); Total Protein 4.8 g/dL (6.4-8.9)
[2022-06-21] MEDS ORDERED: Aspirin EC 81 mg TAB.EC (enteric coated) PO SCH (09:00)
[2022-06-21] MEDS ORDERED: Cyanocobalamin INJ 1,000 MCG/ML VIAL 1 ML VIAL IM SCH (09:00)
[2022-06-21 09:31] LABS: Folate 19.83 ng/mL (5.90-24.80)
[2022-06-21 15:12] VITALS: BP 148/91
[2022-07-04] MEDS ORDERED: Cyanocobalamin INJ 1,000 MCG/ML VIAL 1 ML VIAL IM SCH (09:00)
== END 2022-06-21 15:20 | disposition home or self-care (01) ==
LOC: ED 20:07 → EDHOLD 20:07
PROVIDERS: ADMIT Internal Medicine; ATTEND Internal Medicine